=== PATIENT | male | born 1985 | race Caucasian/White ===

== ENCOUNTER 2024-05-18 19:59 | Emergency (ER) | payer OTHER ==
[~2024-05-18] VITALS: Ht 182.9 cm; Wt 105.0 kg
[2024-05-18 20:20] VITALS: TEMP 98.3; O2SAT 99
[2024-05-18 20:25] VITALS: BP 153/101; PULSE 77; RESP 15
[2024-05-19] MEDS ORDERED: AMOX1TAB16 MT (00:54)
[2024-05-19] MEDS ORDERED: TETANUS, DIPHTHERIA, PERTUSSIS VAC/PF 0.5ML (>10YR OLD) IM ONE (01:00)
== END 2024-05-19 02:39 | disposition home or self-care (01) ==
LOC: ER 19:59
DX: S00.511A Abrasion of lip, initial encounter (principal); W54.0XXA Bitten by dog, initial encounter; Y93.89 Activity, other specified; Y92.89 Other specified places as the place of occurrence of the external cause; Y99.8 Other external cause status
CPT/HCPCS: 99283